=== PATIENT | female | born 1975 | race Caucasian/White ===

== ENCOUNTER → 2017-03-05 | Outpatient (CLI) | payer BC ==
--- NOTE | 2017-03-06 12:48 | MM ---
Reason for exam: screening (asymptomatic). Last mammogram was performed 5 years and 1 month ago. History: Patient is nulliparous. Family history of breast cancer in aunt and breast cancer in grandmother. Benign left breast aspiration of the left breast, February 10, 2012. Physical Findings: A clinical breast exam by your physician is recommended on an annual basis and results should be correlated with mammographic findings. MG 3D Screening Mammo W/Cad Bilateral CC and MLO view(s) were taken. Prior study comparison: February 02, 2012, CAD bilateral diagnostic mammogram. The breast tissue is heterogeneously dense. This may lower the sensitivity of mammography. Previous mammotome biopsy in the left breast. Regional calcifications in both breasts increased in the interval. No suspicious group of microcalcifications. No significant changes when compared with prior studies. ASSESSMENT: Negative, BI-RAD 1 RECOMMENDATION: Routine screening mammogram of both breasts in 1 year.
== END | disposition home or self-care (01) ==
LOC: RADMAMWWP 08:59
PROVIDERS: ATTEND Obstetrics & Gynecology
DX: Z12.31 Encounter for screening mammogram for malignant neoplasm of breast (principal)
CPT/HCPCS: 77063; G0202

== ENCOUNTER → 2019-03-11 | Outpatient (CLI) | payer BC ==
--- NOTE | 2019-03-11 09:31 | US ---
EXAMINATION TYPE: US transvaginal DATE OF EXAM: 03/11/2019 COMPARISON: NONE CLINICAL HISTORY: R10.2 pelvic pain x 3 months; endometriosis; endometrial ablation approximately 12 years ago TECHNIQUE: Transvaginal sonographic images were acquired per order. Date of LMP: prior to endometrial ablation EXAM MEASUREMENTS: Uterus: 7.6 x 3.8 x 4.6 cm Endometrial Stripe: 0.5 cm Right Ovary: 5.1 x 4.5 x 3.5 cm Left Ovary: 7.0 x 5.3 x 4.9 cm 1. Uterus: Anteverted; fluid within cervical canal = 1.9 x 0.8 x 0.2cm; multicystic area within ABBY = 3.0 x 3.0 x 1.7cm; smaller complex area with internal hyperechoic component with ringdown artifact noted superior myometrium and size = 0.9 x 0.9 x 0.7cm; another larger complex round area seen upper left myometrium (possible fibroid) =1.5 x 0.9 x 1.6cm 2. Endometrium: possible upper portion of endo seen post endometrial ablation 3. Right Ovary: enlarged with solid mass = 4.2 x 3.2 x 3.3cm; free fluid is noted medially = 1.6 x 2. 3 x 3.3 x 0.5cm. 4. Left Ovary: enlarged with cystic area with internal contents noted as possible endometrioma = 6.7 x 5.1 x 6.3cm Spectral, color and waveform Doppler imaging shows arterial and venous flow within the ovaries; the re is no evidence for ovarian torsion. 5. Bilateral Adnexa: free fluid seen medial adjacent to right ovary; fluid filled tubular area seen medial and adjacent to left ovary (possible hydrosalpinx) 6. Posterior cul-de-sac: wnl IMPRESSION: 1. Leiomyomatous change as well as areas of cystic change within the uterine myometrium. 2. Nonspecific solid mass right ovary with adjacent free fluid. 3. Cystic mass left ovary with internal debris may reflect endometrioma or hemorrhagic cyst. Prominen t adjacent tubular structure may reflect hydrosalpinx.
== END | disposition home or self-care (01) ==
LOC: RADUSWWP 07:45
PROVIDERS: ATTEND Obstetrics & Gynecology
DX: D25.9 Leiomyoma of uterus, unspecified (principal); N85.8 Other specified noninflammatory disorders of uterus; N83.202 Unspecified ovarian cyst, left side; N83.9 Noninflammatory disorder of ovary, fallopian tube and broad ligament, unspecified
CPT/HCPCS: 76830; 93975

== ENCOUNTER → 2020-05-04 | Outpatient (CLI) | payer BC ==
--- NOTE | 2020-05-05 02:30 | MR ---
EXAMINATION TYPE: MR lumbar spine wo con DATE OF EXAM: 05/04/2020 COMPARISON: None HISTORY: Lower Back Pain into Right Leg down to Ankle X3 months. No Known injury. Multiplanar multiecho imaging of the lumbar spine was performed with no contrast. Vertebra have normal alignment. There is narrowing of disc spaces throughout the lumbar spine. There is moderate posterior disc herniation at L5-S1 in the midline into the right side. There is small pos terior disc herniation in the midline at L4-5. There is no significant spinal stenosis. There is impi ngement on the lateral recess at L5-S1 on the right side due to disc herniation. There is no compression fracture. I see no focal bone destruction. There is no lumbar paraspinal mass . The sacroiliac joints appear intact. IMPRESSION: Posterior disc herniation at L5-S1 towards the right side that is probably clinically significant in this patient with right sided back pain. Disc herniation measures 10 x 8 mm. Mild multilevel spondylo tic changes. Small posterior disc herniation at L4-5. No significant lumbar spinal stenosis.
== END | disposition home or self-care (01) ==
LOC: RADMRIMAIN 16:40
PROVIDERS: ATTEND Nurse Practitioner Family
DX: M51.26 Other intervertebral disc displacement, lumbar region (principal); M51.27 Other intervertebral disc displacement, lumbosacral region
CPT/HCPCS: 72148

== ENCOUNTER 2021-03-30 14:51 | Emergency (ER) | payer BC ==
[2021-03-30 15:03] VITALS: BP 171/118; PULSE 64; RESP 20; TEMP 97.5
--- NOTE | 2021-03-30 15:09 | ED ---
General Adult HPI - General Chief complaint: Abdominal Pain Stated complaint: Abd Pain Time Seen by Provider: 03/30/21 15:07 Source: patient Mode of arrival: ambulatory Limitations: no limitations - History of Present Illness Initial comments: Patient presents to the ED complaining of having sudden onset right upper quadrant pain that began about 1 hour ago while at rest. Patient states that she has also felt nauseated, and she states that she vomited once on her way to the ED today. Patient states that her pain has been waxing and waning since on set. Patient states that she had her gallbladder removed many years ago, and she states that she has also had a hysterectomy. Patient denies trauma or injury, fever or chills, headache, chest pain, dyspnea, cough or cold symptoms, pleuritic pain, dizziness, back pain, diarrhea or constipation, bloody or melanotic stool, hematemesis, dysuria/hematuria/urinary /urinary symptoms, or any other symptoms or complaints. - Related Data Previous Rx's Medication Instructions Recorded Ondansetron Odt [Zofran Odt] 4 mg PO Q8HR PRN #10 tab 03/30/21 Allergies Allergy/AdvReac Type Severity Reaction Status Date / Time No Known Allergies Allergy Verified 03/30/21 15:02 Review of Systems ROS Statement: Those systems with pertinent positive or pertinent negative responses have been documented in the HPI. ROS Other: All systems not noted in ROS Statement are negative. Past Medical History Additional Past Medical History / Comment(s): endometriosis History of Any Multi-Drug Resistant Organisms: None Reported Past Surgical History: Cholecystectomy, Hysterectomy, Orthopedic Surgery Additional Past Surgical History / Comment(s): ramandeep ankle Past Psychological History: No Psychological Hx Reported Smoking Status: Never smoker Past Alcohol Use History: Occasional Past Drug Use History: None Reported General Exam Limitations: no limitations General appearance: alert, in no apparent distress Head exam: Present: atraumatic, normocephalic Eye exam: Present: normal appearance, EOMI ENT exam: Present: mucous membranes moist Neck exam: Present: other (trachea is in midline) Respiratory exam: Present: normal lung sounds bilaterally. Absent: respiratory distress, wheezes, rales, rhonchi, stridor Cardiovascular Exam: Present: regular rate, normal rhythm, normal heart sounds, other (Normal radial pulses bilaterally) GI/Abdominal exam: Present: soft, normal bowel sounds, other (Mild epi gastric/right upper quadrant abdominal tenderness). Absent: distended, guarding, rebound Extremities exam: Absent: tenderness, pedal edema, calf tenderness Back exam: Absent: CVA tenderness (R), CVA tenderness (L) Neurological exam: Present: alert, oriented X3. Absent: motor sensory deficit Psychiatric exam: Present: normal affect, normal mood Skin exam: Present: warm, dry, intact, normal color Course Vital Signs 03/30/21 14:58 Temperature 97.5 F L Pulse Rate 64 Respiratory 20 Rate Blood Pressure 171/118 O2 Sat by Pulse 98 Oximetry - Reevaluation(s) Reevaluation #1: 03/30/21 18:14 Patient states that her pain and nausea have improved with ED treatment, and she denies development of any new symptoms while in the ED. Patient and are aware the patient's test results, and patient feels comfortable going home with her at this time. Patient was counseled about kidney stones and pulmonary nodules, and she was clearly explained return and follow-up instructions. Patient was instructed to follow up closely with her primary care provider to schedule repeat imaging for her pulmonary nodule in the future. Patient was also instructed to follow up closely with urology. Patient was instructed to have a low threshold for return to the emergency department should her symptoms worsen. Patient feels comfortable with this plan. Medical Decision Making - Medical Decision Making I suspect that the patient's pain is likely secondary to her 2 mm right ureteral stone. Patient has no evidence of urinary infection. Patient is afebrile and without leukocytosis. I do not suspect pneumonia either. Will discharge patient home with her at this time. - Lab Data Result diagrams: 03/30/21 15:29 03/30/21 15:29 Lab Results 03/30/21 03/30/21 03/30/21 Range/Units 15:29 15:29 15:29 WBC 4.7 (3.8-10.6) k/uL RBC 4.83 (3.80-5.40) m/uL Hgb 14.8 (11.4-16.0) gm/dL Hct 42.8 (34.0-46.0) % MCV 88.7 (80.0-100.0) fL MCH 30.7 (25.0-35.0) pg MCHC 34.6 (31.0-37.0) g/dL RDW 12.4 (11.5-15.5) % Plt Count 176 (150-450) k/uL MPV 7.3 Neutrophils % 57 % Lymphocytes % 28 % Monocytes % 7 % Eosinophils % 4 % Basophils % 1 % Neutrophils # 2.7 (1.3-7.7) k/uL Lymphocytes # 1.3 (1.0-4.8) k/uL Monocytes # 0.4 (0-1.0) k/uL Eosinophils # 0.2 (0-0.7) k/uL Basophils # 0.1 (0-0.2) k/uL Sodium 141 (137-145) mmol/L Potassium 4.3 (3.5-5.1) mmol/L Chloride 107 (98-107) mmol/L Carbon Dioxide 26 (22-30) mmol/L Anion Gap 8 mmol/L BUN 21 H (7-17) mg/dL Creatinine 0.74 (0.52-1.04) mg/dL Est GFR (CKD-EPI)AfAm >90 (>60 ml/min/1.73 sqM) Est GFR (CKD-EPI)NonAf >90 (>60 ml/min/1.73 sqM) Glucose 111 H (74-99) mg/dL Plasma Lactic Acid Rodo (0.7-2.0) mmol/L Calcium 9.5 (8.4-10.2) mg/dL Total Bilirubin 0.5 (0.2-1.3) mg/dL AST 56 H (14-36) U/L ALT 57 H (4-34) U/L Alkaline Phosphatase 105 (38-126) U/L Total Protein 7.5 (6.3-8.2) g/dL Albumin 4.4 (3.5-5.0) g/dL Lipase 113 (23-300) U/L Urine Color Light Red Urine Appearance Cloudy H (Clear) Urine pH 5.5 (5.0-8.0) Ur Specific Dalton 1.024 (1.001-1.035) Urine Protein 1+ H (Negative) Urine Glucose (UA) Negative (Negative) Urine Ketones Trace H (Negative) Urine Blood Large H (Negative) Urine Nitrite Negative (Negative) Urine Bilirubin Negative (Negative) Urine Urobilinogen <2.0 (<2.0) mg/dL Ur Leukocyte Esterase Negative (Negative) Urine RBC >182 H (0-5) /hpf Urine WBC 19 H (0-5) /hpf Ur Squamous Epith Cells 4 (0-4) /hpf Urine Mucus Moderate H (None) /hpf 03/30/21 Range/Units 15:29 WBC (3.8-10.6) k/uL RBC (3.80-5.40) m/uL Hgb (11.4-16.0) gm/dL Hct (34.0-46.0) % MCV (80.0-100.0) fL MCH (25.0-35.0) pg MCHC (31.0-37.0) g/dL RDW (11.5-15.5) % Plt Count (150-450) k/uL MPV Neutrophils % % Lymphocytes % % Monocytes % % Eosinophils % % Basophils % % Neutrophils # (1.3-7.7) k/uL Lymphocytes # (1.0-4.8) k/uL Monocytes # (0-1.0) k/uL Eosinophils # (0-0.7) k/uL Basophils # (0-0.2) k/uL Sodium (137-145) mmol/L Potassium (3.5-5.1) mmol/L Chloride (98-107) mmol/L Carbon Dioxide (22-30) mmol/L Anion Gap mmol/L BUN (7-17) mg/dL Creatinine (0.52-1.04) mg/dL Est GFR (CKD-EPI)AfAm (>60 ml/min/1.73 sqM) Est GFR (CKD-EPI)NonAf (>60 ml/min/1.73 sqM) Glucose (74-99) mg/dL Plasma Lactic Acid Rodo 0.7 (0.7-2.0) mmol/L Calcium (8.4-10.2) mg/dL Total Bilirubin (0.2-1.3) mg/dL AST (14-36) U/L ALT (4-34) U/L Alkaline Phosphatase (38-126) U/L Total Protein (6.3-8.2) g/dL Albumin (3.5-5.0) g/dL Lipase (23-300) U/L Urine Color Urine Appearance (Clear) Urine pH (5.0-8.0) Ur Specific Dalton (1.001-1.035) Urine Protein (Negative) Urine Glucose (UA) (Negative) Urine Ketones (Negative) Urine Blood (Negative) Urine Nitrite (Negative) Urine Bilirubin (Negative) Urine Urobilinogen (<2.0) mg/dL Ur Leukocyte Esterase (Negative) Urine RBC (0-5) /hpf Urine WBC (0-5) /hpf Ur Squamous Epith Cells (0-4) /hpf Urine Mucus (None) /hpf - Radiology Data Radiology results: report reviewed (CT abdomen/pelvis with IV contrast: 2 mm obstructing right UVJ calculus with moderate hydronephrosis, nonspecific laura appearance of the mesentery, mild right middle lobe and lingula opacities-corre late for atelectasis versus developing infiltrates, 3 mm right middle lobe nodule- recommend followup) Disposition Clinical Impression: Abdominal pain, Nausea and vomiting, Ureterolithiasis Disposition: HOME SELF-CARE Condition: Stable Instructions (If sedation given, give patient instructions): Kidney Stones (ED), Pulmonary Nodules (ED) Additional Instructions: Return to the ER immediately should you develop new or worsening pain, a fever, persistent vomiting, shortness of breath, feeling dizzy or faint, or new or worsening symptoms. Follow up closely with your primary care provider, as well as urology. Prescriptions: Ondansetron Odt [Zofran Odt] 4 mg PO Q8HR PRN #10 tab PRN Reason: Nausea Is patient prescribed a controlled substance at d/c from ED?: No Referrals: Wayne Ponce MD [Primary Care Provider] - 1-2 days Teddy Anthony MD [STAFF PHYSICIAN] - 1-2 days Time of Disposition: 18:17
[2021-03-30] MEDS ORDERED: ONDANSETRON 4 MG/2 ML VIAL IVP STA (15:13)
[2021-03-30] MEDS ORDERED: HYDROmorphone 0.5 MG/0.5 ML SYRINGE IVP STA (15:13)
[2021-03-30] MEDS ORDERED: SODIUM CHLORIDE 0.9% 1,000 ML IV STA (15:13)
[2021-03-30 15:48] LABS: Basophils # (A) 0.1 k/uL (0-0.2); Basophils % (A) 1 %; Eosinophils # (A) 0.2 k/uL (0-0.7); Eosinophils % (A) 4 %; HCT 42.8 % (34.0-46.0); HGB 14.8 gm/dL (11.4-16.0); Lymphocytes # (A) 1.3 k/uL (1.0-4.8); Lymphocytes % (A) 28 %; MCH 30.7 pg (25.0-35.0); MCHC 34.6 g/dL (31.0-37.0); MCV 88.7 fL (80.0-100.0); Mean Platelet Volume 7.3; Monocytes # (A) 0.4 k/uL (0-1.0); Monocytes % (A) 7 %; Neutrophils # (A) 2.7 k/uL (1.3-7.7); Neutrophils % (A) 57 %; Platelet Count 176 k/uL (150-450); RBC 4.83 m/uL (3.80-5.40); RDW 12.4 % (11.5-15.5); WBC 4.7 k/uL (3.8-10.6)
[2021-03-30 15:59] LABS: ALT 57 U/L (4-34); AST 56 U/L (14-36); African American GFR (CKD) >90 (>60 ml/min/1.73 sqM); Albumin 4.4 g/dL (3.5-5.0); Alkaline Phosphatase 105 U/L (38-126); Anion Gap 8 mmol/L; Blood Urea Nitrogen 21 mg/dL (7-17); Calcium 9.5 mg/dL (8.4-10.2); Carbon Dioxide 26 mmol/L (22-30); Chloride 107 mmol/L (98-107); Glucose 111 mg/dL (74-99); Lipase 113 U/L (23-300); Non-African American GFR(CKD) >90 (>60 ml/min/1.73 sqM); Potassium 4.3 mmol/L (3.5-5.1); Sodium 141 mmol/L (137-145); Total Bilirubin 0.5 mg/dL (0.2-1.3); Total Protein 7.5 g/dL (6.3-8.2)
[2021-03-30 17:22] LABS: Appearance,Urine Cloudy (Clear); Bilirubin,Urine Negative (Negative); Blood,Urine Large (Negative); Color,Urine Light Red; Glucose,Urine (UA) Negative (Negative); Ketones,Urine Trace (Negative); Leukocyte Esterase,Urine Negative (Negative); Mucus,Urine Moderate /hpf; Nitrite,Urine Negative (Negative); PH, Urine 5.5 (5.0-8.0); Protein,Urine 1+ (Negative); RBC,Urine >182 /hpf (0-5); Specific Gravity,Urine 1.024 (1.001-1.035); Squamous Epithelial Cell,Urine 4 /hpf (0-4); Urobilinogen,Urine <2.0 mg/dL (<2.0); WBC,Urine 19 /hpf (0-5)
--- NOTE | 2021-03-30 18:04 | CT ---
EXAMINATION TYPE: CT abdomen pelvis w con DATE OF EXAM: 03/30/2021 COMPARISON: None available. HISTORY: Right sided abdominal pain today. CT DLP: 2195.1 mGycm Automated exposure control for dose reduction was used. TECHNIQUE: Helical acquisition of images was performed from the lung bases through the pelvis. CONTRAST: Performed without Oral Contrast and with IV Contrast, patient injected with 100 mL of Isovue 300. FINDINGS: LUNG BASES: Mild opacity in the right middle lobe and lingula. Also 3 mm right middle lobe nodule. LIVER/GB: No acute abnormality is appreciated. Hepatic steatosis and cholecystectomy seen. PANCREAS: No significant abnormality is seen. SPLEEN: No significant abnormality is seen. ADRENALS: No significant abnormality is seen. KIDNEYS: 2 mm calculus at the right ureterovesical junction with resultant mild hydronephrosis. Few n onobstructing left renal calculi measuring 2 mm. FREE AIR: No free air is visualized. RETROPERITONEAL ADENOPATHY: None visualized REPRODUCTIVE ORGANS: No significant abnormality is seen URINARY BLADDER: No significant abnormality is seen. PELVIC ADENOPATHY: None visualized. OSSEOUS STRUCTURES: No significant abnormality is seen. BOWEL: No significant abnormality is seen. OTHER: Nonspecific mild laura appearance of the mesentery. IMPRESSION: 2 MM OBSTRUCTING RIGHT UVJ CALCULUS WITH MODERATE HYDRONEPHROSIS. NONSPECIFIC LAURA APPEARANCE OF THE MESENTERY, CAN BE SEEN ON A CHRONIC BASIS. Mild right middle lobe and lingula opacities, correlate for atelectasis versus developing infiltrates . 3 mm right middle lobe nodule. Recommend follow-up.
[2021-03-30] MEDS ORDERED: ACET/COD 300 MG/30 MG STARTER PACK 6 TAB BTL PO STA (18:18)
== END 2021-03-30 18:26 | disposition home or self-care (01) ==
LOC: EC 14:51
DX: N13.2 Hydronephrosis with renal and ureteral calculous obstruction (principal); R91.8 Other nonspecific abnormal finding of lung field; Z90.49 Acquired absence of other specified parts of digestive tract; Z79.899 Other long term (current) drug therapy
CPT/HCPCS: 36415; 80053; 83605; 83690; 85025; 81001; 87086; 74177; 99284; 96374; 96375; 96361; J2405; J1170; Q9967

== ENCOUNTER → 2021-05-27 | Outpatient (CLI) | payer BC ==
--- NOTE | 2021-05-28 11:19 | MM ---
Reason for exam: screening (asymptomatic). Last mammogram was performed 4 years and 3 months ago. History: Patient is postmenopausal and is nulliparous. Family history of breast cancer in aunt and breast cancer in grandmother. Benign left breast aspiration of the left breast, February 10, 2012. Physical Findings: A clinical breast exam by your physician is recommended on an annual basis and results should be correlated with mammographic findings. MG 3D Screening Mammo W/Cad Bilateral CC and MLO view(s) were taken. Prior study comparison: March 05, 2017, bilateral MG 3d screening mammo w/cad. February 02, 2012, CAD bilateral diagnostic mammogram. The breast tissue is heterogeneously dense. This may lower the sensitivity of mammography. Left biopsy clip. ASSESSMENT: Benign, BI-RAD 2 RECOMMENDATION: Routine screening mammogram of both breasts in 1 year.
== END | disposition home or self-care (01) ==
LOC: RADMAMWWP 16:19
PROVIDERS: ATTEND Obstetrics & Gynecology
DX: Z12.31 Encounter for screening mammogram for malignant neoplasm of breast (principal); Z78.0 Asymptomatic menopausal state; Z80.3 Family history of malignant neoplasm of breast
CPT/HCPCS: 77063; 77067

== ENCOUNTER → 2022-11-06 | Outpatient (CLI) | payer BC ==
--- NOTE | 2022-11-07 07:56 | MM ---
Reason for Exam: Screening (asymptomatic). Last mammogram was performed 1 year(s) and 5 month(s) ago. Patient History: Menarche at age 10. Patient has no children. Left ovary removed at age 43. Right ovary removed at age 43. Hysterectomy at age 43. Postmenopausal. 02/10/2012, Benign Cyst Aspiration on the left side. Paternal grandmother had breast cancer. Paternal aunt had breast cancer. Mother had breast cancer, right, at or over age 50. Risk Values: Marline 5 year model risk: 1.8%. NCI Lifetime model risk: 17.3%. Prior Study Comparison: 02/02/2012 Bilateral Diagnostic Mammogram, [facility]. 03/05/2017 Bilateral Screening Mammogram, [facility]. 05/27/2021 Bilateral Screening Mammogram, [facility]. Tissue Density: The breast tissue is heterogeneously dense. This may lower the sensitivity of mammography. Findings: Analyzed By CAD. There is no suspicious group of microcalcifications or new suspicious mass in either breast. Biopsy clip within the left breast. Benign calcifications within both breasts. Overall Assessment: Benign, BI-RAD 2 Management: Screening Mammogram of both breasts in 1 year. A clinical breast exam by your physician is recommended on an annual basis and results should be correlated with mammographic findings. Electronically signed and approved by: Ra Lisa D.O.
== END | disposition home or self-care (01) ==
LOC: RADMAMWWP 07:03
PROVIDERS: ATTEND Obstetrics & Gynecology
DX: Z12.31 Encounter for screening mammogram for malignant neoplasm of breast (principal); Z78.0 Asymptomatic menopausal state; Z80.3 Family history of malignant neoplasm of breast
CPT/HCPCS: 77063; 77067

== ENCOUNTER → 2023-01-23 | Outpatient (CLI) | payer BC ==
--- NOTE | 2023-01-23 08:16 | CT ---
EXAMINATION TYPE: CT sinus wo con DATE OF EXAM: 01/23/2023 COMPARISON: None HISTORY: Chronic sinusitis CT DLP: 617 mGycm. Automated Exposure Control for Dose Reduction was Utilized. TECHNIQUE: CT scan of the sinuses is performed without contrast, axial images are obtained, coronal r eformatted images are also reviewed. FINDINGS: The paranasal sinuses including the frontal, ethmoid, sphenoid, and maxillary sinuses bila terally are well-aerated without abnormal opacification. The ostiomeatal complex is patent bilateral ly on the coronal images. There is a nasal septal deviation. Visualized portion of mastoid air cells show no abnormal opacification. The globes are intact bilate rally. Dental artifact noted. Mild mucosal thickening along the anterior nasal passage. IMPRESSION: 1. The sinuses are clear and the ostiomeatal complex is patent bilaterally. 2. Nasal septal deviation with mild mucosal thickening along the anterior nasal passage. May represen t mild chronic inflammatory change.
[2023-01-23 10:39] LABS: Basophils # (A) 0.06 X 10*3/uL (0.00-0.10); Basophils % (A) 0.9 %; Eosinophils # (A) 0.53 X 10*3/uL (0.04-0.35); Eosinophils % (A) 8.1 %; HCT 45.3 % (37.2-46.3); Immature Grans, Automated 0.2 %; Lymphocytes # (A) 1.66 X 10*3/uL (0.90-5.00); Lymphocytes % (A) 25.3 %; MCH 29.6 pg (27.0-32.0); MCHC 33.1 g/dL (32.0-37.0); MCV 89.5 fL (80.0-97.0); Mean Platelet Volume 10.5 fL (9.5-12.2); Monocytes # (A) 0.57 X 10*3/uL (0.20-1.00); Monocytes % (A) 8.7 %; NRBC Per 100 WBC 0 /100 WBCS (0.0-0.0); Neutrophils # (A) 3.72 X 10*3/uL (1.80-7.70); Neutrophils % (A) 56.8 %; Platelet Count 199 X 10*3/uL (140-440); RBC 5.06 X 10*6/uL (4.10-5.20); RDW 12.1 % (11.5-14.5); WBC 6.55 X 10*3/uL (4.50-10.00)
[2023-01-23 11:20] LABS: ALT 50 U/L (8-44); AST 34 U/L (13-35); African American GFR (CKD) 118.3 (60.0-200.0); Albumin 4.4 g/dL (3.8-4.9); Albumin/Globulin Ratio 1.57 (1.60-3.17); Alkaline Phosphatase 88 U/L (41-126); BUN/Creat Ratio 22.66 Ratio (12.00-20.00); Blood Urea Nitrogen 15.7 mg/dL (9.0-27.0); Calcium 9.4 mg/dL (8.7-10.3); Carbon Dioxide 30.4 mmol/L (20.0-27.5); Chloride 103 mmol/L (96-109); Chol/HDL Ratio 3.33 Ratio; Globulin 2.8 g/dL (1.6-3.3); Glucose 93 mg/dL (70-110); LDL Cholesterol,Calculated 101.3 mg/dL (0.0-131.0); Non-African American GFR(CKD) 102.1 (60.0-200.0); Sodium 142 mmol/L (135-145); Total Protein 7.2 g/dL (6.2-8.2)
== END | disposition home or self-care (01) ==
LOC: RADCTMAIN 06:32
PROVIDERS: ATTEND Otolaryngology
DX: J32.9 Chronic sinusitis, unspecified (principal); J34.2 Deviated nasal septum; J34.89 Other specified disorders of nose and nasal sinuses
CPT/HCPCS: 70486; 80053; 80061; 82306; 83036; 84439; 84443; 85025

== ENCOUNTER → 2023-01-30 | Outpatient (CLI) | payer BC | END | disposition home or self-care (01) | LOC: LABWHC1 09:48 | PROVIDERS: ATTEND Otolaryngology | DX: M35.00 Sjogren syndrome, unspecified (principal); G50.1 Atypical facial pain; J31.0 Chronic rhinitis; R20.2 Paresthesia of skin | CPT/HCPCS: 36415; 85652; 86038; 86235; 86255 ==

== ENCOUNTER 2023-05-06 09:56 | Day surgery (SDC) | payer BC ==
[~2023-05-06 09:56] MED LIST: FAMOTIDINE 20 MG/2 ML VIAL IV PRN; HYDROmorphone 0.5 MG/0.5 ML SYRINGE IVP PRN; LACTATED RINGERS 1,000 ML IV SCH; LIDOCAINE 1% (10MG/ML) FOR IV START INTRADERMA PRN; ONDANSETRON 4 MG/2 ML VIAL IVP PRN; ceFAZolin 3 GM in SODIUM CHLORIDE 0.9% 100 ML IVPB PRN; metroNIDAZOLE-NS PMX 500 MG in SALINE 1 100ML.BAG IVPB PRN
[2023-05-06] MEDS: OXYMETAZOLINE 0.05% NASL SPRAY 1 SPRAY BOTTLE EA NOSTRIL PRN ×5 (10:25→10:45)
[2023-05-06] MEDS ORDERED: DEXAMETHASONE SOD PHOSPHATE 4 MG/ML 1 ML VIAL IV ONE (10:40)
[2023-05-06] MEDS ORDERED: SCOPOLAMINE 1 MG/72 HR PATCH TRANSDERM ONE (10:41)
[2023-05-06] MEDS ORDERED: LIDOCAINE 2%-EPI 1:100,000 20 ML VIAL SQ ONE ×3 (11:03→11:40)
[2023-05-06] MEDS ORDERED: MIDAZOLAM 2 MG/2 ML VIAL ONE (11:20)
[2023-05-06] MEDS ORDERED: PHENYLEPHRINE-0.9% NACL SYG 1,000 MCG/10 ML SYRINGE ONE (11:20)
[2023-05-06] MEDS ORDERED: PROPOFOL 10 MG/ML 20 ML VIAL IV ONE (11:20)
[2023-05-06] MEDS ORDERED: SUCCINYLCHOLINE CHLORIDE 200 MG/10 ML VIAL IV ONE (11:20)
[2023-05-06] MEDS ORDERED: fentaNYL (PF) 50 MCG/ML 2 ML AMP ONE (11:20)
[2023-05-06] MEDS ORDERED: DEXAMETHASONE SOD PHOSPHATE 10 MG/ML 1 ML VIAL ONE (11:20)
[2023-05-06] MEDS ORDERED: LIDOCAINE 2% INJ 20 MG/ML (2 ML VIAL) ONE (11:20)
--- NOTE | 2023-05-06 12:42 | P.OP ---
Date of Procedure: 05/06/23 Preoperative Diagnosis: Deviated nasal septum Inferior turbinate hypertrophy Chronic sinusitis Postoperative Diagnosis: Same Procedure(s) Performed: Septoplasty Outfracture and submucous resection inferior turbinates Bilateral endoscopic sinus surgery including bilateral maxillary antrostomy right amie bullectomy, right anterior ethmoidectomy, right nasal septal biopsy Anesthesia: JENNIFER Surgeon: Dewey Sommers Pathology: other (Nasal septal bone and cartilage and sinus contents, right nasal septal biopsy) Condition: stable Disposition: PACU Indications for Procedure: The 47-year-old white female with chronic nasal airway obstruction and congestion as well as recurrent/chronic sinusitis Operative Findings: Septum deviated to the inferior turbinate hypertrophy bilaterally. Conservative inferior turbinoplasty was performed. Crusting and diffuse raw area appearance of the anterior septum bilaterally. Maxillary ostia were obstructed bilaterally mild [place] the maxillary sinuses as well as the right ethmoid sinus. Right amie bullosa cell also noted Description of Procedure: The patient was brought into the operative suite and placed in a supine position. The patient underwent induction of general anesthesia with oral endotracheal intubation without difficulty. The patient was prepped and draped in the usual aseptic fashion with the orbits in the operating field for monitoring to the case and the computed tomography scan was on the computer screen for review throughout the case. 1% lidocaine with 1 :100,000 epinephrine was infused submucosally into both sides of the nasal septum as well as the lateral nasal wall and anterior tips of the middle turbinates. While this was taking vasoconstrictive effect the inferior turbinates were infractured with [place] elevator and partial submucous resection of the inferior turbinates was performed with a portion of the submucosal soft tissue and the inferior turbinate bone removed with Coblation device. The inferior turbinates were then outfractured with the [place] elevator. A left hemitransfixion incision was then made with the mucoperichondrial and mucoperiosteal flap on the left elevated. The bony cartilaginous junction was disarticulated and the mucoperiosteal flap on the right was elevated. Bony nasal septal deformities were removed with Will forceps and an inferior cartilaginous strip was removed leaving a full 1.5 cm caudal strut. Checking intranasally this corrected the nasoseptal deformities and the hemitransfixion incision was closed with a running 4-0 chromic suture. Full 0 endoscopic examination is performed bilaterally. Beginning on the left, the middle turbinate was medialized. The maxillary ostium was located with a ballpoint probe and an infundibulotomy was performed followed by uncinectomy. The maxillary antrostomy was enlarged at the expense of the anterior and posterior fontanelle taking care anteriorly not to injure the lacrimal bone. The maxillary sinus was evaluated with 30 and 70 endoscope right amie bullectomy also performed with microdebrider . Attention was then turned to the right where the procedures were followed as they had been on the left including right middle meatus antrostomy and additionally right anterior ethmoidectomy. Additionally biopsy was taken of the tissue of the right nasal septum down to the perichondrium due to crusting with raw appearing mucosa deep to this. [Nasopore nasal dressing was placed in the middle meatus bilaterally under direct visualization]. Bilateral Liu airway splints coated with bacitracin ointment were placed and sutured transseptally with a 4-0 nylon suture. The patient was suctioned in oral gastric fashion and was allowed to emerge from general anesthesia having tolerated procedure well and was extubated in the operating suite and transferred to the postoperative recovery area in satisfactory condition.
[2023-05-06 12:50] VITALS: TEMP 96.8
[2023-05-06] MEDS ORDERED: ONDANSETRON 4 MG/2 ML VIAL IVP ONE (13:24)
[2023-05-06] MEDS ORDERED: LACTATED RINGERS 1,000 ML IV ONE (13:25)
[2023-05-06 13:46] VITALS: RESP 18
[2023-05-06] MEDS ORDERED: HYDROcodone/APAP 5-325MG 1 EACH TAB ONE (14:05)
[2023-05-06] MEDS ORDERED: HYDROcodone/APAP 5-325MG 1 EACH TAB PO ONE (14:05)
[2023-05-06 14:28] VITALS: BP 134/86; PULSE 83
== END 2023-05-06 15:00 | disposition home or self-care (01) ==
LOC: OR 09:56
PROVIDERS: ATTEND Otolaryngology
DX: J34.89 Other specified disorders of nose and nasal sinuses (principal); J34.2 Deviated nasal septum; J34.3 Hypertrophy of nasal turbinates; J32.9 Chronic sinusitis, unspecified; J45.909 Unspecified asthma, uncomplicated; K21.9 Gastro-esophageal reflux disease without esophagitis; Z79.899 Other long term (current) drug therapy
CPT/HCPCS: 30520; 31240; 31256; 31254; 88305; 88300; J2250; J0330; J1100 ×2; J0690; J2405; J3010; J2370; J2704; J2001

== ENCOUNTER → 2023-12-08 | Outpatient (CLI) | payer BC ==
--- NOTE | 2023-12-08 13:08 | MM ---
Reason for Exam: Screening (asymptomatic). Last mammogram was performed 1 year(s) and 1 month(s) ago. Patient History: Menarche at age 10. Patient has no children. Left ovary removed at age 43. Right ovary removed at age 43. Hysterectomy at age 43. Postmenopausal. Currently using Estrogen. 02/10/2012, Benign Cyst Aspiration on the left side. Paternal grandmother had breast cancer. Paternal aunt had breast cancer. Mother had breast cancer, right, at or over age 50. Risk Values: Marline 5 year model risk: 1.8%. NCI Lifetime model risk: 17.1%. Prior Study Comparison: 03/05/2017 Bilateral Screening Mammogram, [facility]. 05/27/2021 Bilateral Screening Mammogram, [facility]. 11/06/2022 Bilateral MG 3D screening mammo w/cad, [facility]. Tissue Density: The breast tissue is extremely dense which could obscure a lesion on mammography. Findings: Analyzed By CAD. There is no suspicious group of microcalcifications or new suspicious mass in either breast. Overall Assessment: Benign, BI-RAD 2 Management: Screening Mammogram of both breasts in 1 year. . Patient should continue monthly self-breast exams. A clinical breast exam by your physician is recommended on an annual basis. This exam should not preclude additional follow-up of suspicious palpable abnormalities. Note on Marline scores and lifetime risk: 1. A Marline score greater than 3% is considered moderate risk. If this is the case, consider specialist referral to assess eligibility for a risk reducing agent. 2. If overall lifetime risk for the development of breast cancer is 20% or higher, the patient may qualify for future screening with alternating mammogram and breast MRI. Electronically signed and approved by: Jayson Rodney M.D. Radiologis
== END | disposition home or self-care (01) ==
LOC: RADMAMWWP 07:46
PROVIDERS: ATTEND Obstetrics & Gynecology
DX: Z12.31 Encounter for screening mammogram for malignant neoplasm of breast (principal); Z80.3 Family history of malignant neoplasm of breast; Z78.0 Asymptomatic menopausal state
CPT/HCPCS: 77063; 77067